=== PATIENT | male | born 1980 | race Caucasian/White ===

== ENCOUNTER 2020-07-13 11:48 | Emergency (ER) | payer OTHER, SELFPAY ==
[2020-07-13 11:54] VITALS: BP 129/76; PULSE 87; RESP 14; O2SAT 100
--- NOTE | 2020-07-13 11:55 | DI.RAD.S_ITS ---
PROCEDURE: XR CHEST 1V INDICATIONS: Chest pain TECHNIQUE: One view of the chest was acquired. COMPARISON: None. FINDINGS: Surgical changes and devices: None. Lungs and pleura: Lungs are clear. No pleural effusions or pneumothorax. Mediastinum: Mediastinal contours appear normal. Heart size is normal. Bones and chest wall: No suspicious bony lesions. Overlying soft tissues appear unremarkable. IMPRESSION: No evidence acute pulmonary process. Dictated by: Jose Shay M.D. on 07/13/2020 at 12:18 Approved by: Jose Shay M.D. on 07/13/2020 at 12:19
[2020-07-13 11:57] VITALS: BP 129/76; PULSE 86; RESP 16; TEMP 36.5; O2SAT 97; BMI 27.8
[2020-07-13 12:00] VITALS: BP 121/67
[2020-07-13 12:16] LABS: Add Manual Diff / Slide Review NO; Basophils Absolute Auto 100 /uL (0-100); Basophils Percent Auto 1.1 % (0-2); Eosinophils Absolute Auto 200 /uL (0-450); Eosinophils Percent Auto 2.8 % (2-4); Hematocrit 39.5 % (41-53); Hemoglobin 13.3 g/dL (13.5-17.5); Lymphocytes Absolute Auto 2100 /uL (1100-4500); Lymphocytes Percent Auto 29.6 % (25-40); Mean Corpuscular HGB Conc 33.6 % (30-36); Mean Corpuscular Hemoglobin 31.1 PG (26-34); Mean Corpuscular Volume 92.4 fL (80-100); Monocytes Absolute Auto 800 /uL (0-900); Monocytes Percent Auto 11.5 % (3-14); Neutrophils Absolute Auto 3800 /uL (1500-7000); Platelet Count 236 X10^3/uL (150-400); Red Blood Cell Count 4.28 X10^6/uL (4.5-5.9); White Blood Cell Count 6.9 X10^3/uL (4.5-11.0)
--- NOTE | 2020-07-13 12:19 | ED.CHESTPAIN ---
HPI - Chest Pain General Chief Complaint: Chest Pain Stated Complaint: chest pain Time Seen by Provider: 07/13/20 11:55 Source: patient Mode of arrival: Ambulatory Limitations: no limitations History of Present Illness HPI narrative: Patient is an otherwise healthy 39-year-old male who is here for evaluation of approximately 24-48 hours of diarrhea. Is also had some nausea. He states that earlier today he started to have some central chest pain. Went and told his about it. They went to go talk with his parents and as he was going up a couple stairs he suddenly became very lightheaded. He states he did not pass out but almost did. Did not hit his head. Around the time he was not having any pain. Was not vomiting. No shortness of breath. No fast or irregular heart rhythms. He states that when he immediately came to afterwards he had to go and have a bowel movement. He currently is symptom free. Related Data Previous Rx's Medication Instructions Recorded ondansetron 4 mg PO Q6H PRN #14 tab 07/13/20 Review of Systems Constitutional Constitutional: Denies fever(s) Cardiovascular Cardiovascular: Reports chest pain and Denies dyspnea Respiratory Respiratory: Denies dyspnea Gastrointestinal Gastrointestinal: Reports abdominal pain, Reports diarrhea, Reports nausea and Reports vomiting Genitourinary Genitourinary: Denies dysuria Genitourinary: Denies dysuria Musculoskeletal Musculoskeletal: Reports system reviewed and no additional complaints, except as documented Integumentary/Breasts Skin/Breast: Reports system reviewed and no additional complaints, except as documented Neurologic Neurologic: Reports system reviewed and no additional complaints, except as documented Hematologic/Lymphatic On Anticoagulants: No Allergic/Immunologic Allergic/Immunologic: Reports system reviewed and no additional complaints, except as documented Patient History Medical History Healthy adult Social History marital status: Exam Initial Vital Signs Initial Vital Signs: Vital Signs Pulse Rate 87 07/13/20 11:54 Respiratory Rate 14 07/13/20 11:54 Blood Pressure 129/76 07/13/20 11:54 Pulse Oximetry 100 07/13/20 11:54 Const General: cooperative and comfortable Limitations: mental status not altered HENMT Head: normal to inspection and normocephalic Resp Effort & Inspection: normal respiratory effort Auscultation: clear to auscultation bilaterally Cardio Rate: regular rate Rhythm: regular rhythm GI Inspection: non-distended Palpation: soft, No firm and No tender Skin Lesions: no lesions Rashes: no rashes Neuro General: patient alert, patient awake and patient oriented x3 Cognition: normal cognition Extrem General: normal to inspection, capillary refill normal and No edema Psych Appearance: grossly normal and well kempt Course Orders Ordered: ED Orders 07/13/20 11:55 XR chest 1V Stat EKG-12 Lead Stat 07/13/20 12:06 Complete Blood Count AUTO DIFF Stat Comprehensive Metabolic Panel Stat Lipase Stat Troponin & CK Cardiac Panel Stat Vital Signs Vital signs: Vital Signs - 8 hr 07/13/20 11:54 07/13/20 11:57 07/13/20 12:00 Temperature 97.7 F Pulse Rate 87 86 Respiratory Rate 14 16 Blood Pressure 129/76 129/76 121/67 Pulse Oximetry 100 97 MDM - Chest Pain Lab Data Attestation: I reviewed the patient's lab results. Result diagrams: 07/13/20 12:06 07/13/20 12:06 Labs: Lab Results 07/13/20 07/13/20 Range/Units 12:06 12:06 WBC 6.9 (4.5-11.0) X10^3/uL RBC 4.28 L (4.5-5.9) X10^6/uL Hgb 13.3 L (13.5-17.5) g/dL Hct 39.5 L (41-53) % MCV 92.4 (80-100) fL MCH 31.1 (26-34) PG MCHC 33.6 (30-36) % RDW 14.0 (11.6-14.8) % Plt Count 236 (150-400) X10^3/uL Neut % (Auto) 55.0 (50-75) % Lymph % (Auto) 29.6 (25-40) % [place] % (Auto) 11.5 (3-14) % Eos % (Auto) 2.8 (2-4) % Baso % (Auto) 1.1 (0-2) % Neut # (Auto) 3800 (6568-4914) /uL Lymph # (Auto) 2100 (9869-2150) /uL [place] # (Auto) 800 (0-900) /uL Eos # (Auto) 200 (0-450) /uL Baso # (Auto) 100 (0-100) /uL Sodium 138 (137-145) mmol/L Potassium 4.3 (3.4-5.1) mmol/L Chloride 103 (98-107) mmol/L Carbon Dioxide 27 (22-32) mmol/L BUN 17 (9-20) mg/dL Creatinine 0.88 (0.66-1.25) mg/dL Estimated GFR > 60.0 (>60) mL/min BUN/Creatinine Ratio 19.3 (6-22) Glucose 111 H (70-100) mg/dL Calcium 9.0 (8.4-10.2) mg/dL Total Bilirubin 0.7 (0.2-1.3) mg/dL AST 28 (17-59) IU/L ALT 22 (<50) IU/L Alkaline Phosphatase 41 (38-126) U/L Total Creatine Kinase 93 (55-170) U/L CK-MB (CK-2) 0.31 (<2.37) ng/mL CK-MB (CK-2) Rel Index 0.3 L (1.5-5.0) % Troponin I < 0.012 (0.01-0.034) ng/mL Total Protein 7.2 (6.3-8.2) g/dL Albumin 4.2 (3.5-5.0) g/dL Globulin 3.0 (1.7-4.1) g/dL Albumin/Globulin Ratio 1.4 (1.0-2.8) Lipase 43 (23-300) U/L Imaging Data Chest x-ray: Radiologist's Impression: [address] [id number] ReportSigned Patient: Fabiano Ren [facility]#: [id number]: 1980Acct:[id number]/Sex: 39 / MDate of Service: 07/13/20Loc: EDAccession Number: [id number] Procedure: XR chest 1V Ordering Provider: Kendell Washington D.O. PROCEDURE: XR CHEST 1V INDICATIONS: Chest pain TECHNIQUE: One view of the chest was acquired. COMPARISON: None. FINDINGS: Surgical changes and devices: None. Lungs and pleura: Lungs are clear. No pleural effusions or pneumothorax. Mediastinum: Mediastinal contours appear normal. Heart size is normal. Bones and chest wall: No suspicious bony lesions. Overlying soft tissues appear unremarkable. IMPRESSION: No evidence acute pulmonary process. Dictated by: Jose Shay M.D. on 07/13/2020 at 12:18 Approved by: Jose Shay M.D. on 07/13/2020 at 12:19 ECG Data Attestation: I personally reviewed and interpreted this ECG as follows: Prior ECG tracings: not available for review Interpretation: Sinus rhythm Ventricular rate is 74 Left axis deviation Normal QRS Normal QTC No ST T wave changes MDM Narrative Medical decision making narrative: Patient's labs unremarkable. EKG is unremarkable. I suspect that his chest discomfort is related to his vomiting and and esophagitis. No indication for antibiotics currently. I suspect that his presyncopal episode was related to the other issues that have been going on today with regard to his nausea and vomiting. Low suspicion for seizure. Will discharge home with nausea medication. Is given return precautions. Expressed understanding and agreement. Discharge Plan Departure Patient Disposition: Home Clinical Impression: Diarrhea, Nausea and vomiting, Pre-syncope Instructions: DI for Syncope in Adults (Fainting), Nausea and Vomiting-Adult Activity Restrictions/Additional Instructions: I do recommend that you increase your fluid intake to stay hydrated. Use the nausea medicine that you were given a prescription for today as needed. Contact your primary provider for follow-up. Return to the emergency department for any new or worsening symptoms Prescriptions: New ondansetron 4 mg tablet,disintegrating 4 mg PO Q6H PRN (Reason: nausea and vomiting) Qty: 14 RF: 0
[2020-07-13 12:24] LABS: Alanine Aminotransferase 22 IU/L (<50); Albumin 4.2 g/dL (3.5-5.0); Albumin Globulin Ratio 1.4 (1.0-2.8); Alkaline Phosphatase 41 U/L (38-126); Aspartate Aminotransferase 28 IU/L (17-59); BUN Creatinine Ratio 19.3 (6-22); Bilirubin Total 0.7 mg/dL (0.2-1.3); Blood Urea Nitrogen 17 mg/dL (9-20); Carbon Dioxide 27 mmol/L (22-32); Chloride 103 mmol/L (98-107); Creatine Kinase 93 U/L (55-170); Estimated Glomerular Filt Rate > 60.0 mL/min (>60); Glucose 111 mg/dL (70-100); HEMOLYSIS < 15 (0-50); Lipase 43 U/L (23-300); Potassium 4.3 mmol/L (3.4-5.1); Sodium 138 mmol/L (137-145); Total Protein 7.2 g/dL (6.3-8.2)
[2020-07-13 12:30] VITALS: BP 110/65; PULSE 81; RESP 22; O2SAT 97
[2020-07-13 12:36] LABS: Troponin I < 0.012 ng/mL (0.01-0.034)
[2020-07-13 12:56] LABS: CKMB % Relative Index 0.3 % (1.5-5.0); Creatine Kinase MB 0.31 ng/mL (<2.37)
[2020-07-13 13:00] VITALS: BP 106/70; PULSE 77; RESP 15; O2SAT 98
[2020-07-13 13:30] VITALS: BP 120/69; PULSE 70; RESP 15; O2SAT 98
== END 2020-07-13 13:42 | disposition home or self-care (01) ==
PROVIDERS: Emergency Provider Emergency Medicine
DX: R19.7 Diarrhea, unspecified (principal); R11.2 Nausea with vomiting, unspecified; R55 Syncope and collapse; R07.9 Chest pain, unspecified; R10.9 Unspecified abdominal pain
CPT/HCPCS: 36415; 71045; 80053; 82550; 82553; 83690; 84484; 85025; 93005; 99284